=== PATIENT | male | born 1995 | race Caucasian/White ===

== ENCOUNTER 2017-10-02 17:33 | Emergency (ER) | payer BC ==
[~2017-10-02] VITALS: Ht 182.9 cm; Wt 84.1 kg
[2017-10-02 17:35] VITALS: TEMP 98
[2017-10-02 18:11] LABS: BASO % 0.2 % (0.0-2.0); EOS % 0.2 % (0-4.0); GRAN % 88.2 % (42.2-75.2); HEMATOCRIT 46.9 % (36.0-47.0); HEMOGLOBIN 16.8 g/dl (12.5-16.1); LYMPH # 0.8 (1.2-3.4); LYMPH % 6.8 % (20.0-51.0); MEAN CELL VOLUME 84 fl (80.0-95.0); MEAN CORPUSCULAR HEMOGLOBIN 30 pg (26.0-32.0); MEAN CORPUSCULAR HGB CONC 36 g/dl (33.0-37.0); MONO # 0.5 (0.1-0.6); MONO % 4.3 % (1.7-9.3); PLATELET COUNT 160 K/mm3 (130-400); RED BLOOD COUNT 5.57 M/mm3 (4.20-5.60); REDCELL DISTRIBUTION WIDTH-CV 12.4 % (11.5-14.5)
[2017-10-02 18:22] LABS: ALBUMIN 4.9 gm/dL (3.5-5.0); C-REACTIVE PROTEIN 0.9 mg/dL (0.0-0.9); CALCIUM 10.1 mg/dL (8.4-10.2); CREATININE, serum 0.76 mg/dL (0.66-1.25); POTASSIUM 3.9 mmol/L (3.4-5.0); TOTAL PROTEIN 9.5 gm/dL (6.4-8.2)
[2017-10-02 18:30] LABS: COLLECTION METHOD CLEAN CATCH
[2017-10-02 18:38] LABS: MUCOUS Present /lpf; PH 7 (5-8); SQUAMOUS EPITHELIAL 0-2 /hpf; URINE APPEARANCE Clear; URINE BACTERIA None Seen /hpf; URINE BILIRUBIN Negative (NEGATIVE); URINE BLOOD Negative (NEGATIVE); URINE COLOR Yellow; URINE GLUCOSE Negative (NEGATIVE); URINE KETONE 2+ (NEGATIVE); URINE LEUKOCYTE ESTERASE Negative (NEGATIVE); URINE NITRATE Negative (NEGATIVE); URINE PROTEIN(semi-quant) 2+ (NEGATIVE); URINE UROBILINOGEN Negative (NEGATIVE)
[2017-10-02 20:10] VITALS: BP 129/75; PULSE 70
== END 2017-10-02 20:11 | disposition home or self-care (01) ==
LOC: COL.ER 17:33
PROVIDERS: Physician Assistant
DX: R11.2 Nausea with vomiting, unspecified (principal); R10.31 Right lower quadrant pain
CPT/HCPCS: J1170; J2405; J7030; Q9967

== ENCOUNTER 2018-03-13 08:10 | Emergency (ER) | payer BC ==
[~2018-03-13] VITALS: Ht 182.9 cm; Wt 87.1 kg
[2018-03-13] MEDS ORDERED: LIDODERM 5% PATC1 EA TP (09:03)
[2018-03-13] MEDS ORDERED: FLEXERIL 1010 MG/TAB PO (09:03)
[2018-03-13 09:13] VITALS: BP 123/67; PULSE 73; TEMP 98.3
== END 2018-03-13 09:12 | disposition home or self-care (01) ==
LOC: COL.ER 08:10
DX: M62.830 Muscle spasm of back (principal)
CPT/HCPCS: J1885; J2360